=== PATIENT | female | born 1945 | race Caucasian/White ===

== ENCOUNTER 2018-05-18 07:52 | Emergency (ER) | payer MEDICARE ==
--- NOTE | 2018-05-18 09:09 | ULT ---
VENOUS DOPPLER ULTRASOUND OF THE LEFT LOWER EXTREMITY: Date: 05/18/18 HISTORY: Left lower extremity pain. TECHNIQUE: Briceno scale ultrasound with color flow and spectral Doppler imaging of the deep venous system of the l eft lower extremity was performed. FINDINGS: There is good flow, compression, and augmentation noted in the common femoral, femoral, deep femoral, popliteal, posterior tibial, and greater saphenous veins in the left lower extremity. Avascular fluid collection/cystic mass in the posteromedial aspect of the left knee likely represents a Ruiz's cyst. IMPRESSION: No evidence of deep venous thrombosis in the left lower extremity. POS: [facility]
== END 2018-05-18 10:05 | disposition home or self-care (01) ==
LOC: ERS 07:52
DX: M79.605 Pain in left leg (principal)

== ENCOUNTER 2018-11-26 12:45 | Outpatient (CLI) | payer MEDICARE ==
--- NOTE | 2018-11-26 13:07 | RAD ---
CERVICAL SPINE 3 VIEWS: DATE: 11/26/2018. COMPARISON: None. HISTORY: Neck pain, history of surgery, bilateral arm pain. FINDINGS: Lateral neutral, flexion, and extension imaging provided. There is disc space narrowing with degenera tive endplate change noted at C2-3 and C3-4 with mild anterior osteophyte formation noted at the C3-4 level. There is no evidence for hardware failure. No significant anterolisthesis or retrolisthes is is seen on the flexion, neutral, or extension lateral views. No prevertebral soft tissue swelling. Multilevel bilateral facet hypertrophy is suspected, most prominent at C3-4. IMPRESSION: Postoperative and degenerative change within the cervical spine as above. Transcribed Date/Time: 11/26/2018 1:36 PM
== END 2018-11-26 12:46 | disposition home or self-care (01) ==
LOC: TBSIIMAG 12:45
PROVIDERS: ATTEND Neurological Surgery
DX: M54.2 Cervicalgia (principal); M47.812 Spondylosis without myelopathy or radiculopathy, cervical region; Z98.890 Other specified postprocedural states
CPT/HCPCS: 72040

== ENCOUNTER 2018-12-07 12:52 | Outpatient (CLI) | payer MEDICARE ==
--- NOTE | 2018-12-07 13:23 | RAD ---
XR Cerv Sp Ap Lat STANDARD HISTORY: Neck pain with bilateral arm weakness and pain. COMPARISON: 11/26/2018 study. FINDINGS: The vertebral bodies are normal in height. The bones are demineralized. Anterior cervical f usion is again demonstrated with plate and screws placed from C4 to C7. Markers of disc implants are within the confines of the disc levels. Marked degenerative facet changes are noted. IMPRESSION: Stable postop change.
== END 2018-12-07 12:53 | disposition home or self-care (01) ==
LOC: TBSIIMAG 12:52
PROVIDERS: ATTEND Neurological Surgery
DX: M54.2 Cervicalgia (principal); Z98.890 Other specified postprocedural states
CPT/HCPCS: 72040

== ENCOUNTER 2019-03-30 13:18 | Outpatient (CLI) | payer MEDICARE ==
--- NOTE | 2019-03-30 13:46 | RAD ---
Cervical spine 3 views: 03/30/2019 COMPARISON: 11/30/2018 HISTORY: Evaluate cervical spine following surgery FINDINGS: Anterior discectomy and fusion hardware is present, spanning the C3-4, C4-5, C5-6, and C6- 7 levels. There is mild prevertebral soft tissue prominence, similar when compared to the prior exam. The hardware has been extended to involve the C3-4 level when compared to the prior study. No e vidence for hardware failure. Open-mouth odontoid view demonstrates a normal-appearing dens and C1 to articulation. IMPRESSION: Cervical spine postoperative change as described above.
== END 2019-03-30 13:19 | disposition home or self-care (01) ==
LOC: TBSIIMAG 13:18
PROVIDERS: ATTEND Neurological Surgery
DX: M50.20 Other cervical disc displacement, unspecified cervical region (principal); Z98.1 Arthrodesis status
CPT/HCPCS: 72040